=== PATIENT | female | born 1950 | race Caucasian/White ===

== ENCOUNTER 2018-03-18 23:12 | Inpatient (IN) | payer MEDICARE, OTHER ==
[~2018-03-18] VITALS: Ht 149.9 cm; Wt 77.1 kg
[~2018-03-18 23:12] MED LIST: CLEOCIN HCL150 MG PO; LEVOXYL75 MCG; QUINU5 PD PO; ZOLOFT 50 MG TA50 M1 PO
[2018-03-18 23:29] VITALS: BP 208/92
[2018-03-18 23:51] LABS: ABSOLUTE BASOPHILS 0.1 thou/uL (0.0-0.2); ABSOLUTE EOSINOPHILS 0.1 thou/uL (0.0-0.7); ABSOLUTE MONOCYTES 0.8 thou/uL (0.0-1.2); ABSOLUTE NEUTROPHILS 4.3 thou/uL (1.6-8.1); BASOPHILS 0.7 %; EOSINOPHILS 1.5 %; HEMATOCRIT 40.7 % (37.0-47.0); HEMOGLOBIN 13.3 gm/dL (12.0-15.0); LYMPHOCYTES 36.2 %; MCH 27.8 pg (26.0-34.0); MCHC 32.8 g/dL (28.0-37.0); MCV 84.9 fL (80.0-100.0); MONOCYTES 10.1 %; MPV 7.6 fl. (7.2-11.1); NUCLEATED RBCS 0 /100WBC; PLATELET COUNT* 297 thou/uL (150-400); POLYS 51.5 %; RDW-CV 14.1 % (10.5-14.5); WBC 8.2 thou/uL (4.0-11.0)
[2018-03-19] VITALS (8 sets, daily range): BP systolic 134–180; BP diastolic 58–90
[2018-03-19 00:02] LABS: ANION GAP 7 mmol/L (7-16); BUN 9 mg/dL (7-18); CALCIUM 8.8 mg/dL (8.5-10.1); CHLORIDE 106 mmol/L (98-107); CO2 27 mmol/L (21-32); CREATININE 0.8 mg/dL (0.6-1.3); GLUCOSE 109 mg/dL (70-99); SODIUM 140 mmol/L (136-145)
[2018-03-19 00:09] LABS: ALBUMIN 3.8 g/dL (3.4-5.0); ALKALINE PHOSPHATASE 143 U/L (46-116); LIPASE 132 U/L (73-393); MAGNESIUM 1.9 mg/dL (1.8-2.4); SGOT 18 U/L (15-37); SGPT 20 U/L (30-65); TOTAL BILIRUBIN 0.3 mg/dL (<0.1-1.0); TOTAL PROTEIN 7.4 g/dL (6.4-8.2); TROPONIN-I LEVEL <0.06 ng/mL (<0.06)
[2018-03-19] MEDS ORDERED: BENTYL 10 MG CA10 M1 PO (02:44)
[2018-03-19] MEDS ORDERED: ESTRADIOL TRANSDERM (02:46)
--- NOTE | 2018-03-19 04:40 | NUR ---
PT ADMITTED TO RM 214. A+O *4. PLEASANT, DENIES ANY CP OR CALDWELL. BP 170/84 P 68. MEDS RECONCILED. MONITOR PLACED, ADMIT ASSESSNT COMPLETE. STD FALL RISK. CONT WITH CARE.
--- NOTE | 2018-03-19 11:01 | EKG ---
[place] [address] ELECTROCARDIOGRAM REPORT Name: FAB HANNA Room: [address] IN [facility].#: [id number] Admission: 03/19/18 Attend Phys: Isabela Burns Discharge: Date of : 54 Report #: [id number] THIS REPORT FOR: //name// [facility] ED Test Date: 2018-03-18 Test Time: 23:54:43 Pat Name: FAB HANNA Department: Room: Gender: F Trauma Surgeon: SONIA Pittman : 1950 Requested By: Adolph Rosas Order Number: [id number] MD: Loy Perez Measurements Intervals [place] Rate: 66 P: 41 HI: 136 QRS: 78 QRSD: 94 T: 52 QT: 406 QTc: 426 Interpretive Statements Sinus rhythm No previous ECG available for comparison Electronically Signed On 03-19-2018 11:00:56 CDT by Loy Perez [email or web address] <ELECTRONICALLY SIGNED> By: Loy Perez MD, MERGED WITH [facility] 03/19/18 1100 [id number] [id number] Loy Perez MD, FACC /EPI
--- NOTE | 2018-03-19 14:02 | NUR ---
MET WITH PT TO DISCUSS HOME SITUATION/DC PLANNING. PT LIVES WITH SPOUSE. SHE IS INDEPENDENT AND ACTIVE. USES NO EQUIPMENT AND HASN'T HAD HH. STATES FEELING IMPROVED AND DENIES NEEDS. WILL FOLLOW
--- NOTE | 2018-03-19 18:24 | NUR ---
ASSESSMENT COMPLETED REFER TO COMPUTER CHARTING. STEAMBLASTER TRACKING SR. PATIENT RESTING IN BED REPORTING NO PAIN, NAUSEA OR SHORTNESS OF BREATH. BED IN LOW AND LOCKED POSITION. CALL LIGHT WITHIN REACH. IV SALINE LOCKED. ON ROOM AIR. WILL CONTINUE TO MONITOR THIS SHIFT.
[2018-03-20 03:51] VITALS: BP 134/79
[2018-03-20 04:34] LABS: HEMATOCRIT 41.2 % (37.0-47.0); HEMOGLOBIN 13.4 gm/dL (12.0-15.0); MCH 27.8 pg (26.0-34.0); MCHC 32.5 g/dL (28.0-37.0); MCV 85.4 fL (80.0-100.0); MPV 7.8 fl. (7.2-11.1); RBC 4.83 mil/uL (4.20-5.00); RDW-CV 13.9 % (10.5-14.5); WBC 7.3 thou/uL (4.0-11.0)
[2018-03-20 05:11] LABS: CALCIUM 8.5 mg/dL (8.5-10.1); CREATININE 0.8 mg/dL (0.6-1.3); POTASSIUM 5.1 mmol/L (3.5-5.1)
--- NOTE | 2018-03-20 05:31 | NUR ---
A&O X4 CALM COOPERITVE. SR-SB ON THE MONITOR. ADLIB IN ROOM. VITALS WNL. SEE MAR. SEE CHARTING. HOURLY ROUNDING FOR SAFETY.
[2018-03-20 08:36] VITALS: BP 146/80
--- NOTE | 2018-03-20 08:49 | NUR ---
ASSUMED PT CARE AT 0730, FULL ASSESMENT DONE CHARTED. PT A/O X4, DENIES PAIN, VSS, SB ON THE MONITOR. PT ASKING IF SHE CAN GO HOME TODAY AND IF SHE NEEDS TO NOT WORK TONIGHT. REVIEWED PLAN OF CARE WITH PT, WAITING FOR DR TO SEE HER. EDUCATED ON NEW MEDS. FALL PRECATUIOINS IN PLACE WILL CONTINUE WITH PLAN OF CARE.
[2018-03-20] MEDS ORDERED: HYDROCHLOROTH12.5 M1 PO (11:57)
[2018-03-20] MEDS ORDERED: ASPIRIN325 PO (11:58)
[2018-03-20 12:01] VITALS: BP 146/80
[2018-03-20 12:29] VITALS: BP 149/75
== END 2018-03-20 13:09 | disposition home or self-care (01) | DRG 305 ==
LOC: M.ERS 23:12 → M.2W 03-19 00:48 → M.TBA-ER 03-19 00:48 → M.2W 03-19 01:53
PROVIDERS: Emergency Medicine Emergency Medical Services; Family Medicine; ADMIT Internal Medicine
DX: I16.1 Hypertensive emergency (principal); Q87.40 Marfan syndrome, unspecified; I10 Essential (primary) hypertension; E03.9 Hypothyroidism, unspecified; E66.9 Obesity, unspecified; F41.8 Other specified anxiety disorders; Z86.718 Personal history of other venous thrombosis and embolism; Z86.711 Personal history of pulmonary embolism; Z88.8 Allergy status to other drugs, medicaments and biological substances; Z79.899 Other long term (current) drug therapy; Z90.89 Acquired absence of other organs; Z90.710 Acquired absence of both cervix and uterus; Z82.49 Family history of ischemic heart disease and other diseases of the circulatory system; Z68.34 Body mass index [BMI] 34.0-34.9, adult

== ENCOUNTER 2018-12-10 19:06 | Emergency (ER) | payer MEDICARE, OTHER ==
[~2018-12-10] VITALS: Ht 149.9 cm; Wt 72.6 kg
[~2018-12-10 19:06] MED LIST changes: +ASPIRIN325 PO; +BENTYL 10 MG CA10 M1 PO; +ESTRADIOL TRANSDERM; +HYDROCHLOROTH12.5 M1 PO
[2018-12-10 20:15] VITALS: BP 143/79
== END 2018-12-10 20:15 | disposition home or self-care (01) ==
LOC: M.ERS 19:06
DX: S83.8X2A Sprain of other specified parts of left knee, initial encounter (principal); M71.22 Synovial cyst of popliteal space [Baker], left knee; E78.5 Hyperlipidemia, unspecified; I10 Essential (primary) hypertension; Z90.710 Acquired absence of both cervix and uterus; Z90.49 Acquired absence of other specified parts of digestive tract; Z88.8 Allergy status to other drugs, medicaments and biological substances; X50.1XXA Overexertion from prolonged static or awkward postures, initial encounter; Y92.89 Other specified places as the place of occurrence of the external cause; Y93.73 Activity, racquet and hand sports; Y99.8 Other external cause status

== ENCOUNTER → 2019-11-10 | Outpatient (CLI) | payer MEDICARE, OTHER | LOC: M.RAD 13:16 | DX: Z13.820 Encounter for screening for osteoporosis (principal); M85.88 Other specified disorders of bone density and structure, other site ==